=== PATIENT | male | born 1930 | race Caucasian/White ===

== ENCOUNTER 2017-08-23 11:14 | Inpatient (IN) | payer OTHER ==
[2017-08-23 11:28] VITALS: BMI 30.2
--- NOTE | 2017-08-23 11:50 | PDOC ---
History of Present Illness - General History Source: Patient Exam Limitations: No Limitations - History of Present Illness Initial Comments: 08/23/17 12:31 The patient is a 87 year old male, with a significant PMH of CAD, hypertension, hypercholesterolemia, who presents to the emergency department with mid sternal chest pain beginning this morning. The patient states he was in the pharmacy this morning when he had an episode of chest pain described as mid sternal, non radiating and sweating which lasted for a couple of minutes. The patient is a poor historian and unable to provide additional information. The patient also states he has some back pain. The patient denies shortness of breath, headache and dizziness. Denies fever, chills, nausea, vomit, diarrhea and constipation. Denies dysuria, frequency, urgency and hematuria. Allergies: NKA Past surgical history: 3 cardiac stents, thyroidectomy. Social history: No reported Office Supervisor: Dr. Rivas <Dillon Nagy - Last Filed: 08/23/17 15:00> <Sam Hardwick - Last Filed: 08/23/17 19:26> - General Chief Complaint: Chest Pain Stated Complaint: CHEST PAIN Time Seen by Provider: 08/23/17 11:22 Past History <Dillon Nagy - Last Filed: 08/23/17 15:00> - Past Medical History Cardiac Disorders: Yes COPD: No HTN: Yes Hypercholesterolemia: Yes - Surgical History Cardiac Surgery: Yes (STENT X 4) - Suicide/Smoking/Psychosocial Hx Smoking Status: No Smoking History: Never smoked Have you smoked in the past 12 months: No Number of Cigarettes Smoked Daily: 0 Information on smoking cessation initiated: No Hx Alcohol Use: No Drug/Substance Use Hx: No Substance Use Type: None <Sam Hardwick - Last Filed: 08/23/17 19:26> - Past Medical History Allergies/Adverse Reactions: Allergies Allergy/AdvReac Type Severity Reaction Status Date / Time No Known Allergies Allergy Verified 08/23/17 11:23 Home Medications: Ambulatory Orders Alprazolam [Xanax -] 0.25 mg PO TID 12/28/13 Amlodipine Besylate [Norvasc -] 5 mg PO DAILY 12/28/13 Atorvastatin Ca [Lipitor -] 20 mg PO HS 12/28/13 Clopidogrel Bisulfate [Plavix -] 75 mg PO DAILY 12/28/13 Famotidine [Pepcid -] 20 mg PO DAILY 12/28/13 Losartan Potassium 50 mg PO DAILY 12/28/13 Metoprolol Succinate [Toprol XL -] 25 mg PO BID 12/28/13 Zolpidem Tartrate 10 mg PO HS 12/28/13 Fenofibrate [Fenoglide] 160 mg PO DAILY 08/23/17 [place]-3 Acid Ethyl Esters [Lovaza -] 2,000 mg PO BID 08/23/17 Review of Systems - Review of Systems Comments:: 08/23/17 12:32 A complete review of 10 out of 10 review of systems is taken and is negative apart from what is previously mentioned below and in the HPI. <Dillon Nagy - Last Filed: 08/23/17 15:00> *Physical Exam - Vital Signs Last Vital Signs Temp Pulse Resp BP Pulse Ox 97.8 F 62 20 126/67 93 L 08/23/17 11:24 08/23/17 11:34 08/23/17 11:24 08/23/17 11:24 08/23/17 11:24 - Physical Exam Comments: 08/23/17 12:32 Vitals: Triage vital signs reviewed General Appearance: No acute distress, well nourished, well developed Head: Atraumatic Eyes: Pupils equal reactive round, extraocular movement intact Ears: TM's normal bilaterally Nose: Nares patent bilaterally; no nasal congestion Throat: Posterior oropharynx without erythema, mucous membranes moist Neck: Supple; No nuchal rigidity Chest Wall: Nontender Cardiac: Regular rate and rhythm, no murmurs, no rubs, no gallops Lungs: Clear to auscultation bilateral, good air movement bilaterally Abdomen: Soft, nondistended, normal bowel sounds, nontender to palpation Rectal: Exam deferred Extremities: Full range of motion to all extremities, no cyanosis, clubbing, or edema Skin: Warm and dry, no rashes or lesions, no rash, no petechiae Neuro: Cranial Nerves 2-12 grossly intact, Strength intact to all extremities, Sensation intact to all extremities. Psych: Normal mood, normal affect <Dillon Nagy - Last Filed: 08/23/17 15:00> - Vital Signs Last Vital Signs Temp Pulse Resp BP Pulse Ox 97.8 F 62 20 126/67 62 L 08/23/17 11:24 08/23/17 11:24 08/23/17 11:24 08/23/17 11:24 08/23/17 11:34 <aSm Hardwick - Last Filed: 08/23/17 19:26> Heart Score/ECG Review - History History: Moderately suspicious - Electrocardiogram EKG: Normal - Age Age: >/= 65 - Risk Factors Risk Factors Heart Score: Yes Hx Hypercholesterolemia, Yes Hx Hypertension, Yes Positive family hx of cardiac disease Based on the list above the patient has:: >/=3 risk factors or Hx atherosclerotic disease - Troponin Troponin: 1-3x normal limit - Score Heart Score - Total: 6 - ECG Impressions Comment:: 08/23/17 13:52 EKG performed at 1323. Demonstrates sinus rhythm 76 bpm. [place] 1:30 QRS 120 QTC 470. Normal axis and complete right bundle branch block. No ST elevations or T- wave inversions Interpreted by me. <Sam Hardwick - Last Filed: 08/23/17 19:26> ED Treatment Course - LABORATORY CBC & Chemistry Diagram: 08/23/17 12:05 08/23/17 12:05 - ADDITIONAL ORDERS Additional order review: 08/23/17 12:05 RBC 4.41 MCV 92.3 MCHC 34.9 RDW 13.1 MPV 9.1 Neutrophils % 76.3 D Lymphocytes % 12.2 D Monocytes % 9.0 Eosinophils % 2.0 Basophils % 0.5 - RADIOLOGY Radiograph Interpretation: 08/23/17 15:00 EXAM#: TYPE/EXAM: RESULT: [id number] RAD/CHEST X-RAY PORTABLE* AP portable chest: Shortness of breath. Chest pain Since 12/28/2013, again noted is the prominent mediastinum but no sign of an acute process. There are degenerative changes. The angles are sharp. The soft tissues are intact. Correlation recommended. Reported By: Orion Vaughn MD <Dillon Nagy - Last Filed: 08/23/17 15:00> - LABORATORY CBC & Chemistry Diagram: 08/23/17 12:05 08/23/17 12:05 <Sam Hardwick - Last Filed: 08/23/17 19:26> Medical Decision Making - Medical Decision Making 08/23/17 12:33 The patient is a 87 year old male, with a significant PMH of CAD, hypertension, hypercholesterolemia, who presents to the emergency department with mid sternal chest pain beginning this morning. Plan: EKG, Troponin, Labs, Chest x-ray. 08/23/17 13:[address] Cruz. Case discussed. <Dillon Nagy - Last Filed: 08/23/17 15:00> - Medical Decision Making Heart score 6. Troponin 0.2. Case discussed with cardiology and patient's primary care provider. We'll admit to telemetry for further management. Full dose aspirin given. <Sam Hardwick - Last Filed: 08/23/17 19:26> *DC/Admit/Observation/Transfer - Attestations Scribe Attestion: 08/23/17 12:33 Documentation prepared by Dillon Nagy, acting as director medical surgical for Sam Hardwick MD. <Dillon Nagy - Last Filed: 08/23/17 15:00> - Discharge Dispostion Decision to Admit order: Yes <Sam Hardwick - Last Filed: 08/23/17 19:26> Diagnosis at time of Disposition: Chest pain Qualifiers: Chest pain type: unspecified Qualified Code(s): R07.9 - Chest pain, unspecified
[2017-08-23 12:18] LABS: BASO % 0.5 % (0-2.0); HEMATOCRIT 40.7 % (35.4-49); HEMOGLOBIN 14.2 GM/dL (11.7-16.9); LYMPH % 12.2 % (8-40); MCH 32.2 pg (25.7-33.7); MCHC 34.9 g/dl (32.0-35.9); MEAN CELL VOLUME 92.3 fl (80-96); MEAN PLT VOLUME 9.1 fl (7.5-11.1); NEUT % 76.3 % (42.8-82.8); PLATELET COUNT 95 K/MM3 (134-434); RBC 4.41 M/mm3 (4.00-5.60); RDW 13.1 % (11.9-15.9); WHITE BLOOD COUNT 7.2 K/mm3 (4.0-10.0)
[2017-08-23 12:26] LABS: INR 1.12 (0.82-1.09); PROTHROMBIN TIME (PATIENT) 12.7 SEC (9.7-13.0)
[2017-08-23 12:38] LABS: ALBUMIN 3.7 g/dl (3.4-5.0); ANION GAP 6 (8-16); BLOOD UREA NITROGEN 28 mg/dL (7-18); CALCIUM 8.3 mg/dL (8.5-10.1); CHLORIDE 104 mmol/L (98-107); CO2 28 mmol/L (21-32); CREATININE 1.5 mg/dL (0.7-1.3); GLUCOSE,RANDOM 127 mg/dL (74-106); POTASSIUM 4.8 mmol/L (3.5-5.1); SGOT/AST 27 U/L (15-37); SGPT/ALT 24 U/L (12-78); SODIUM 138 mmol/L (136-145)
[2017-08-23 12:40] LABS: ALK PHOS 118 U/L (45-117); BILIRUBIN,TOTAL 1.1 mg/dL (0.2-1.0)
[2017-08-23] MEDS ORDERED: ASPIRIN 325 MG TABLET PO ONE (12:55)
[2017-08-23] MEDS ORDERED: ASPIRIN 325 MG TABLET ONE (12:57)
--- NOTE | 2017-08-23 14:27 | CON.CARD ---
Consult Consult Specialty:: Cardiology Referred by:: Michoacano Dove MD Reason for Consultation:: Chest pain - History of Present Illness Chief Complaint: Chest pain History of Present Illness: 87-year-old male of /[place] descent with known history of coronary artery disease status post multi-vessel percutaneous coronary intervention stenting (ARELI-LAD August 03, 2008, ARELI-LCX and ARELI-RCA August 30, 2008 patent stents on cardiac catheterization coronary angiography January 04, 2014) abnormal pharmacologic (Dipyridamole) myocardial perfusion imaging study for myocardial ischemia May 29, 2012 single vessel obstructive coronary artery disease on coronary angiography January 04, 2014 (distal LAD lesion not appropriate for percutaneous intervention) angina pectoris, diastolic left ventricular dysfunction with class 0 [place] [employer] classification left ventricular failure, mitral valve regurgitation mild plus in severity on echocardiography performed November 17, 2015, aortic valve regurgitation mild plus in severity, tricuspid valve regurgitation mild in severity with calculated RVSP of 36 mmHg on echocardiography performed November 17, 2015, hypertensive cardiovascular disease, hypercholesterolemia/mixed dyslipidemia, abnormal hemoglobin A1C, history of transient diplopia, benign positional vertigo, chronic tinnitus, gastro-esophageal reflux disease, anxiety disorder and chronic insomnia who was last evaluated in the office June 21, 2017. Since the above evaluation, patient presents with non-radiating retrosternal chest discomfort at pharmacy, chronic dyspnea with mild to moderate physical exertion and denies any orthopnea, paroxysmal nocturnal dyspnea or peripheral edema, palpitations, dizziness, lightheadedness or syncope, fatigue or tiredness. Patient admits to lack of ambulation. Patient reports weight gain related to the above-noted lack of ambulation and dietary indiscretion.Patient remains under significant emotional stress related to his 's chronic illness and additional personal/family issues. - History Source History Provided By: Medical Record Limitations to Obtaining History: Poor Historian - Alcohol/Substance Use Hx Alcohol Use: No - Smoking History Smoking history: Never smoked Have you smoked in the past 12 months: No Aproximately how many cigarettes per day: 0 Home Medications - Allergies Allergies/Adverse Reactions: Allergies Allergy/AdvReac Type Severity Reaction Status Date / Time No Known Allergies Allergy Verified 08/23/17 11:23 - Home Medications Home Medications: Ambulatory Orders Alprazolam [Xanax -] 0.25 mg PO TID 12/28/13 Amlodipine Besylate [Norvasc -] 5 mg PO DAILY 12/28/13 Atorvastatin Ca [Lipitor -] 20 mg PO HS 12/28/13 Clopidogrel Bisulfate [Plavix -] 75 mg PO DAILY 12/28/13 Famotidine [Pepcid -] 20 mg PO DAILY 12/28/13 Losartan Potassium 50 mg PO DAILY 12/28/13 Metoprolol Succinate [Toprol XL -] 25 mg PO BID 12/28/13 Zolpidem Tartrate 10 mg PO HS 12/28/13 Fenofibrate [Fenoglide] 160 mg PO DAILY 08/23/17 Review of Systems - Review of Systems Cardiovascular: reports: Chest Pain Vital Signs: Vital Signs Temperature 98.2 F 08/23/17 13:38 Pulse Rate 64 08/23/17 13:38 Respiratory Rate 17 08/23/17 13:38 Blood Pressure 143/78 08/23/17 13:38 O2 Sat by Pulse Oximetry (%) 98 08/23/17 13:38 Constitutional: Yes: No Distress, Calm Neck: Yes: Supple Respiratory: Yes: Regular, CTA Bilaterally Gastrointestinal: Yes: Normal Bowel Sounds, Soft Cardiovascular: Yes: Regular Rate and Rhythm JVD: No Carotid Bruit: No Heart Sounds: Yes: S1, S2 Murmur: Yes: Systolic Murmur, Grade 1 Edema: No - Other Data Labs, Other Data: CBC, BMP 08/23/17 12:05 08/23/17 12:05 INR, PTT INR 1.12 (0.82-1.09) 08/23/17 12:05 Troponin, BNP 08/23/17 12:05 Troponin I 0.20 H D Troponin, BNP 08/23/17 12:05 Troponin I 0.20 H D NSR @ 65 mod criterial LVH Imaging - Results Chest X-ray: Report Reviewed (NAD) Problem List - Problems (1) Coronary artery disease Code(s): I25.10 - ATHSCL HEART DISEASE OF [place] CORONARY ARTERY W/O ANG PCTRS Qualifiers: Coronary Disease-Associated Artery/Lesion type: [place] artery [place] vs. transplanted heart: [place] heart Associated angina: without angina Qualified Code(s): I25.10 - Atherosclerotic heart disease of [place] coronary artery without angina pectoris (2) S/P coronary artery stent placement Code(s): Z95.5 - PRESENCE OF CORONARY ANGIOPLASTY IMPLANT AND GRAFT (3) Hypertensive cardiomyopathy Code(s): I11.9 - HYPERTENSIVE HEART DISEASE WITHOUT HEART FAILURE; I43 - CARDIOMYOPATHY IN DISEASES CLASSIFIED ELSEWHERE Qualifiers: Heart failure presence: without heart failure Qualified Code(s): I11.9 - Hypertensive heart disease without heart failure; I43 - Cardiomyopathy in diseases classified elsewhere; I43 - Cardiomyopathy in diseases classified elsewhere; I43 - Cardiomyopathy in diseases classified elsewhere; I43 - Cardiomyopathy in diseases classified elsewhere (4) Mixed hyperlipidemia Code(s): E78.2 - MIXED HYPERLIPIDEMIA (5) Diastolic dysfunction without heart failure Code(s): I51.89 - OTHER ILL-DEFINED HEART DISEASES (6) Chronic kidney disease (CKD) Code(s): N18.9 - CHRONIC KIDNEY DISEASE, UNSPECIFIED Qualifiers: Chronic kidney disease stage: stage 3 (moderate) Qualified Code(s): N18.3 - Chronic kidney disease, stage 3 (moderate) (7) Chest pain Code(s): R07.9 - CHEST PAIN, UNSPECIFIED Qualifiers: Chest pain type: unspecified Qualified Code(s): R07.9 - Chest pain, unspecified Assessment/Plan Holter monitor performed November 09, 2015 revealed sinus rhythm with first-degree AV block, Mobitz type I AV block, blocked APCs, a minimum HR of 46 BPM and maximum HR of 73 BPM average daily HR of 55 BPM, pauses were noted the longest measuring 2.4 seconds at 15:25:22, rare supraventricular ectopics including one run of NSSVT consistent with ectopic atrial tachycardia, frequent ventricular ectopics including couplets and triplets and nonspecific ST segment abnormality noted during recording non diagnostic of ischemia. Echocardiography performed November 17, 2015 revealed redundant mitral valve leaflets with no evidence of mitral valve prolapse, mitral annular calcification , aortic valve leaflet sclerosis, aortic root sclerosis, normal left ventricular size and function with calculated left ventricular ejection fraction of 64%, mild plus mitral and aortic valve regurgitation, mild tricuspid valve regurgitation with calculated RVSP of 36 mmHg. Echocardiography performed June 01, 2013 revealed normal left ventricular systolic function, mitral annular calcification, aortic valve sclerosis, mild mitral, aortic and tricuspid valve regurgitation with calculated right ventricular systolic pressure of 29 mmHg. Pharmacologic (Dipyridamole) myocardial perfusion imaging study performed May 29, 2012 revealed small distal infero-apical wall defect compatible with mild ischemia, small to moderate size inferior, infero-basal wall defect compatible with diaphragmatic attenuation with normal left ventricular contraction pattern on LV gated analysis with calculated left ventricular ejection fraction of 83%. Left heart cardiac catheterization coronary angiography performed January 04, 2014 revealed patent LAD stent, distal LAD 70% diameter stenosis, patent LCX- OM1 stent and patent RCA stent. 1. Chest pain syndrome with underlying coronary artery disease status post multi-vessel percutaneous coronary intervention stenting abnormal pharmacologic (Dipyridamole) myocardial perfusion imaging study single vessel obstructive coronary artery disease on coronary angiography for medical management angina pectoris, stable. 2. Diastolic left ventricular dysfunction with class 0-I [place] Heart [employer] classification left ventricular failure, compensated/euvolemic. 3. Mitral valve regurgitation mild plus in severity. 4. Aortic valve regurgitation mild plus in severity. 5. Tricuspid valve regurgitation mild in severity with calculated RVSP of 36 mmHg on echocardiography performed November 17, 2015. 6. Hypertensive cardiovascular disease, at goal. 7. Hypercholesterolemia, mixed dyslipidemia, not at goal. 8. Abnormal hemoglobin A1C. 9. History of transient diplopia. 10. History of persistent tinnitus. 11. History of benign positional vertigo. 12. History of gastro-esophageal reflux disease. 13. Chronic kidney disease stage IIIA. 14. History of chronic insomnia. 15. History of anxiety disorder. 1. Patient was advised to continue Toprol XL 25 bid, Norvasc 5 qd, Cozaar 25 qd , Lipitor 20 qd, Plavix 75 qd, Lovaza 2 capsules twice daily considering abnormal lipid profile and in addition emphasized importance of compliance to therapy administration. 2. Ruling out for [place] 3. Patient was strongly counseled dietary compliance including caloric restriction, increase ambulation and weight reduction. 4. Echocardiography for evaluation of left ventricular systolic function and the above-noted valvular pathologies as outpatient 5. Routine follow-up visit with Dr. Clark after discharge 6. Thank you for consultative opportunity
[2017-08-23] MEDS: metoPROLOL SUCCINATE 25 MG TAB.SR.24H (FP) PO SCH ×2 (15:26→21:42)
[2017-08-23] MEDS: ATORVASTATIN CA 20 MG TABLET (FP) PO SCH (21:42)
[2017-08-23] MEDS: RANITIDINE HCL 150 MG TABLET (FP) PO SCH (21:42)
[2017-08-23] MEDS: OMEGA-3 ACID ETHYL ESTERS (FATTY-ACIDS) 1 GM CAPSULE (FP) PO SCH (21:42)
[2017-08-23] MEDS: LOSARTAN POTASSIUM 25 MG TABLET PO SCH (21:42)
[2017-08-23] MEDS ORDERED: ZOLPIDEM TARTRATE 5 MG TABLET PO PRN (22:00)
[2017-08-23] MEDS: ALPRAZolam 0.25 MG TABLET PO SCH (22:06)
[2017-08-24] MEDS: ALPRAZolam 0.25 MG TABLET PO SCH ×3 (06:37→21:09)
--- NOTE | 2017-08-24 08:21 | EKG ---
Test Reason : Blood Pressure : / mmHG Vent. Rate : 065 BPM Atrial Rate : 065 BPM P-R Int : 230 ms QRS Dur : 096 ms QT Int : 370 ms P-R-T Axes : 057 -04 033 degrees QTc Int : 384 ms SINUS RHYTHM WITH SINUS ARRHYTHMIA WITH 1ST DEGREE A-V BLOCK MODERATE VOLTAGE CRITERIA FOR LVH, MAY BE NORMAL VARIANT BORDERLINE ECG WHEN COMPARED WITH ECG OF 28-DEC-2013 03:53, NO SIGNIFICANT CHANGE WAS FOUND Confirmed by BLANCA ALEXANDER MD ([id number]) on 08/24/2017 8:21:00 AM Referred By: Confirmed By:BLANCA ALEXANDER MD
[2017-08-24] MEDS: CLOPIDOGREL BISULFATE 75 MG TABLET (FP) PO SCH (09:40)
[2017-08-24] MEDS: LOSARTAN POTASSIUM 25 MG TABLET PO SCH ×2 (09:40→21:09)
[2017-08-24] MEDS: OMEGA-3 ACID ETHYL ESTERS (FATTY-ACIDS) 1 GM CAPSULE (FP) PO SCH ×2 (09:40→21:09)
[2017-08-24] MEDS: amLODIPine BESYLATE 5 MG TABLET (FP) PO SCH (09:40)
[2017-08-24] MEDS: metoPROLOL SUCCINATE 25 MG TAB.SR.24H (FP) PO SCH ×2 (09:40→21:09)
[2017-08-24] MEDS: RANITIDINE HCL 150 MG TABLET (FP) PO SCH ×2 (09:40→21:09)
[2017-08-24 14:06] LABS: ALBUMIN 3.4 g/dl (3.4-5.0); ANION GAP 5 (8-16); BILIRUBIN,TOTAL 0.8 mg/dL (0.2-1.0); BLOOD UREA NITROGEN 25 mg/dL (7-18); CALCIUM 8.1 mg/dL (8.5-10.1); CHLORIDE 105 mmol/L (98-107); CHOLESTEROL 132 mg/dL (50-200); CO2 28 mmol/L (21-32); CREATININE 1.5 mg/dL (0.7-1.3); GLUCOSE,RANDOM 142 mg/dL (74-106); POTASSIUM 4.5 mmol/L (3.5-5.1); SGOT/AST 29 U/L (15-37); SGPT/ALT 22 U/L (12-78); SODIUM 138 mmol/L (136-145); TOT PROT 6.6 g/dl (6.4-8.2); TRIGLYCERIDES 206 mg/dL (35-160)
[2017-08-24 14:19] LABS: ALK PHOS 114 U/L (45-117); HDL CHOLESTEROL 39 mg/dL (40-60)
--- NOTE | 2017-08-24 15:36 | EKG ---
Test Reason : Blood Pressure : / mmHG Vent. Rate : 058 BPM Atrial Rate : 058 BPM P-R Int : 226 ms QRS Dur : 096 ms QT Int : 426 ms P-R-T Axes : 065 007 018 degrees QTc Int : 418 ms SINUS BRADYCARDIA WITH MARKED SINUS ARRHYTHMIA WITH 1ST DEGREE A-V BLOCK WITH OCCASIONAL PREMATURE VENTRICULAR COMPLEXES MINIMAL VOLTAGE CRITERIA FOR LVH, MAY BE NORMAL VARIANT BORDERLINE ECG WHEN COMPARED WITH ECG OF 23-AUG-2017 11:16, PREMATURE VENTRICULAR COMPLEXES ARE NOW PRESENT Confirmed by BENJAMIN KELLOGG, BLANCA ([id number]) on 08/24/2017 3:36:16 PM Referred By: Arnoldo AUGUSTIN Confirmed By:BLANCA ALEXANDER MD
--- NOTE | 2017-08-24 15:50 | PN ---
Progress Note, Physician History of Present Illness: No further chest pain or dyspnea. - Current Medication List Current Medications: Active Medications Alprazolam (Xanax -) 0.25 mg PO TID [facility] Last Admin: 08/24/17 14:58 Dose: 0.25 mg Amlodipine Besylate (Norvasc -) 5 mg PO DAILY [facility] Last Admin: 08/24/17 09:40 Dose: 5 mg Atorvastatin Calcium (Lipitor -) 20 mg PO HS [facility] Last Admin: 08/23/17 21:42 Dose: 20 mg Clopidogrel Bisulfate (Plavix -) 75 mg PO DAILY [facility] Last Admin: 08/24/17 09:40 Dose: 75 mg Losartan Potassium (Cozaar -) 25 mg PO BID [facility] Last Admin: 08/24/17 09:40 Dose: 25 mg Metoprolol Succinate (Toprol Xl -) 25 mg PO BID [facility] Last Admin: 08/24/17 09:40 Dose: 25 mg [id number] Ethyl Esters (Lovaza -) 2 gm PO BID [facility] Last Admin: 08/24/17 09:40 Dose: 2 gm Ranitidine HCl (Zantac -) 150 mg PO BID [facility] Last Admin: 08/24/17 09:40 Dose: 150 mg Zolpidem Tartrate (Ambien -) 5 mg PO HS PRN PRN Reason: INSOMNIA - Objective Vital Signs: Vital Signs Temperature 97.6 F 08/24/17 14:00 Pulse Rate 65 08/24/17 14:00 Respiratory Rate 18 08/24/17 14:00 Blood Pressure 134/62 08/24/17 14:00 O2 Sat by Pulse Oximetry (%) 96 08/24/17 09:00 Constitutional: Yes: No Distress, Calm, Thin Neck: Yes: Supple Cardiovascular: Yes: Regular Rate and Rhythm Respiratory: Yes: Regular, CTA Bilaterally Gastrointestinal: Yes: Normal Bowel Sounds, Soft Edema: No Labs: CBC, BMP 08/23/17 12:05 08/24/17 13:35 INR, PTT INR 1.12 (0.82-1.09) 08/23/17 12:05 - ....Imaging EKG: Report Reviewed (SB 1st deg AVB PVC) Problem List - Problems (1) Coronary artery disease Code(s): I25.10 - ATHSCL HEART DISEASE OF [place] CORONARY ARTERY W/O ANG PCTRS Qualifiers: Coronary Disease-Associated Artery/Lesion type: [place] artery [place] vs. transplanted heart: [place] heart Associated angina: without angina Qualified Code(s): I25.10 - Atherosclerotic heart disease of [place] coronary artery without angina pectoris (2) S/P coronary artery stent placement Code(s): Z95.5 - PRESENCE OF CORONARY ANGIOPLASTY IMPLANT AND GRAFT (3) Hypertensive cardiomyopathy Code(s): I11.9 - HYPERTENSIVE HEART DISEASE WITHOUT HEART FAILURE; I43 - CARDIOMYOPATHY IN DISEASES CLASSIFIED ELSEWHERE Qualifiers: Heart failure presence: without heart failure Qualified Code(s): I11.9 - Hypertensive heart disease without heart failure; I43 - Cardiomyopathy in diseases classified elsewhere; I43 - Cardiomyopathy in diseases classified elsewhere; I43 - Cardiomyopathy in diseases classified elsewhere; I43 - Cardiomyopathy in diseases classified elsewhere (4) Mixed hyperlipidemia Code(s): E78.2 - MIXED HYPERLIPIDEMIA (5) Diastolic dysfunction without heart failure Code(s): I51.89 - OTHER ILL-DEFINED HEART DISEASES (6) Chronic kidney disease (CKD) Code(s): N18.9 - CHRONIC KIDNEY DISEASE, UNSPECIFIED Qualifiers: Chronic kidney disease stage: stage 3 (moderate) Qualified Code(s): N18.3 - Chronic kidney disease, stage 3 (moderate) (7) Chest pain Code(s): R07.9 - CHEST PAIN, UNSPECIFIED Qualifiers: Chest pain type: unspecified Qualified Code(s): R07.9 - Chest pain, unspecified (8) Demand ischemia Code(s): I24.8 - OTHER FORMS OF ACUTE ISCHEMIC HEART DISEASE Assessment/Plan Holter monitor performed November 09, 2015 revealed sinus rhythm with first-degree AV block, Mobitz type I AV block, blocked APCs, a minimum HR of 46 BPM and maximum HR of 73 BPM average daily HR of 55 BPM, pauses were noted the longest measuring 2.4 seconds at 15:25:22, rare supraventricular ectopics including one run of NSSVT consistent with ectopic atrial tachycardia, frequent ventricular ectopics including couplets and triplets and nonspecific ST segment abnormality noted during recording non diagnostic of ischemia. Echocardiography performed November 17, 2015 revealed redundant mitral valve leaflets with no evidence of mitral valve prolapse, mitral annular calcification , aortic valve leaflet sclerosis, aortic root sclerosis, normal left ventricular size and function with calculated left ventricular ejection fraction of 64%, mild plus mitral and aortic valve regurgitation, mild tricuspid valve regurgitation with calculated RVSP of 36 mmHg. Echocardiography performed June 01, 2013 revealed normal left ventricular systolic function, mitral annular calcification, aortic valve sclerosis, mild mitral, aortic and tricuspid valve regurgitation with calculated right ventricular systolic pressure of 29 mmHg. Pharmacologic (Dipyridamole) myocardial perfusion imaging study performed May 29, 2012 revealed small distal infero-apical wall defect compatible with mild ischemia, small to moderate size inferior, infero-basal wall defect compatible with diaphragmatic attenuation with normal left ventricular contraction pattern on LV gated analysis with calculated left ventricular ejection fraction of 83%. Left heart cardiac catheterization coronary angiography performed January 04, 2014 revealed patent LAD stent, distal LAD 70% diameter stenosis, patent LCX- OM1 stent and patent RCA stent. 1. Chest pain syndrome with underlying coronary artery disease status post multi-vessel percutaneous coronary intervention stenting abnormal pharmacologic (Dipyridamole) myocardial perfusion imaging study single vessel obstructive coronary artery disease on coronary angiography for medical management with demand ischemia 2. Diastolic left ventricular dysfunction with class 0-I [place] [employer] classification left ventricular failure, compensated/euvolemic. 3. Mitral valve regurgitation mild plus in severity. 4. Aortic valve regurgitation mild plus in severity. 5. Tricuspid valve regurgitation mild in severity with calculated RVSP of 36 mmHg on echocardiography performed November 17, 2015. 6. Hypertensive cardiovascular disease, at goal. 7. Hypercholesterolemia, mixed dyslipidemia, not at goal. 8. Abnormal hemoglobin A1C. 9. History of transient diplopia. 10. History of persistent tinnitus. 11. History of benign positional vertigo. 12. History of gastro-esophageal reflux disease. 13. Chronic kidney disease stage IIIA. 14. History of chronic insomnia. 15. History of anxiety disorder. 1. Patient was advised to continue Toprol XL 25 bid, Norvasc 5 qd, Cozaar 25 bid, Lipitor 20 qd, Plavix 75 qd, Lovaza 2 capsules twice daily considering abnormal lipid profile and in addition emphasized importance of compliance to therapy administration. 2. Trend trops to document peak 3. Patient was strongly counseled dietary compliance including caloric restriction, increase ambulation and weight reduction. 4. Echocardiography for evaluation of left ventricular systolic function and the above-noted valvular pathologies as outpatient 5. Routine follow-up visit with Dr. Clark after discharge
--- NOTE | 2017-08-24 20:51 | HP ---
Admitting History and Physical - Primary Care Physician PCP: Michoacano Dove - Admission Chief Complaint: chest pain History of Present Illness: 87 y/o who was at a pharmacy picking up his meds yesterday and noted mid sternal chest pain without any radiation to arms or neck and then began sweating profusely History Source: Patient Limitations to Obtaining History: No Limitations - Past Medical History Cardiovascular: Yes: CAD, HTN, Hyperlipdemia Psych: Yes: Anxiety - Past Surgical History Past Surgical History: Yes: Colonoscopy, Stent Additional Past Surgical History: Parathyroid adenoma excision - Smoking History Smoking history: Never smoked Have you smoked in the past 12 months: No Aproximately how many cigarettes per day: 0 - Alcohol/Substance Use Hx Alcohol Use: No History of Substance Use: reports: None - Social History Usual Living Arrangement: Yes: With Spouse ADL: Independent History of Recent Travel: No Home Medications - Allergies Allergies/Adverse Reactions: Allergies Allergy/AdvReac Type Severity Reaction Status Date / Time No Known Allergies Allergy Verified 08/23/17 11:23 - Home Medications Home Medications: Ambulatory Orders Alprazolam [Xanax] 0.25 mg PO TID 12/28/13 Amlodipine Besylate [Norvasc -] 5 mg PO DAILY 12/28/13 Atorvastatin Ca [Lipitor] 20 mg PO HS 12/28/13 Clopidogrel Bisulfate [Plavix -] 75 mg PO DAILY 12/28/13 Famotidine [Pepcid -] 20 mg PO DAILY 12/28/13 Losartan Potassium 50 mg PO DAILY 12/28/13 Metoprolol Succinate [Toprol XL -] 25 mg PO BID 12/28/13 Zolpidem Tartrate 10 mg PO HS 12/28/13 Liz[place]ores-3 Acid Ethyl Esters [Lovaza -] 2,000 mg PO BID 08/23/17 Amlodipine Besylate [Norvasc -] 5 mg PO DAILY tablet 08/26/17 Atorvastatin Ca [Lipitor] 20 mg PO HS tablet 08/26/17 Clopidogrel Bisulfate [Plavix -] 75 mg PO DAILY tablet 08/26/17 Losartan Potassium [Cozaar -] 25 mg PO BID tablet 08/26/17 Metoprolol Succinate [Toprol XL -] 25 mg PO BID tab.sr.24h 08/26/17 Lizemores-3 Acid Ethyl Esters [Lovaza -] 2 gm PO BID cap 08/26/17 Ranitidine [Zantac -] 150 mg PO BID tablet 08/26/17 Review of Systems - Review of Systems Constitutional: reports: No Symptoms Eyes: reports: No Symptoms HENT: reports: No Symptoms Neck: reports: No Symptoms Cardiovascular: reports: Chest Pain Respiratory: reports: No Symptoms Gastrointestinal: reports: Indigestion Genitourinary: reports: No Symptoms Breasts: reports: No Symptoms Reported Musculoskeletal: reports: No Symptoms Integumentary: reports: No Symptoms Neurological: reports: No Symptoms Endocrine: reports: No Symptoms Hematology/Lymphatic: reports: No Symptoms Psychiatric: reports: Anxiety Physical Examination Vital Signs: Vital Signs Temperature 98.2 F 08/24/17 17:00 Pulse Rate 57 L 08/24/17 17:00 Respiratory Rate 18 08/24/17 17:00 Blood Pressure 123/61 08/24/17 17:00 O2 Sat by Pulse Oximetry (%) 96 08/24/17 09:00 Constitutional: Yes: Well Nourished, No Distress, Calm Eyes: Yes: Conjunctiva Clear, EOM Intact HENT: Yes: WNL Neck: Yes: Supple, Trachea Midline Cardiovascular: Yes: Regular Rate and Rhythm, S1, S2 Respiratory: Yes: Regular, CTA Bilaterally Gastrointestinal: Yes: Normal Bowel Sounds, Soft Renal/: Yes: WNL Breast(s): Yes: WNL Musculoskeletal: Yes: WNL Extremities: Yes: WNL Edema: No Peripheral Pulses WNL: Yes Peripheral Pulses: Left Doralis Pedis: 4+, Right Dorsalis Pedis: 4+ Integumentary: Yes: WNL Neurological: Yes: Alert, Oriented, Cran Nerves II-XII Intact ...Motor Strength: WNL Psychiatric: Yes: Alert, Oriented Labs: CBC, BMP 08/23/17 12:05 08/24/17 13:35 Imaging - Results X-ray: Report Reviewed, Image Reviewed EKG: Report Reviewed, Image Reviewed Problem List - Problems (1) Chest pain Assessment/Plan: At present denies any chest pain even ambulating in the room.Troponin is elevated and will be followed Code(s): R07.9 - CHEST PAIN, UNSPECIFIED Qualifiers: Chest pain type: unspecified Qualified Code(s): R07.9 - Chest pain, unspecified (2) Chronic kidney disease (CKD) Assessment/Plan: Stable renal function at present and will be followed. Code(s): N18.9 - CHRONIC KIDNEY DISEASE, UNSPECIFIED Qualifiers: Chronic kidney disease stage: stage 3 (moderate) Qualified Code(s): N18.3 - Chronic kidney disease, stage 3 (moderate) (3) Coronary artery disease Assessment/Plan: Underwent angioplasty with three stents in the past and had cardiac evaluation with stress test OP and was negative. Code(s): I25.10 - ATHSCL HEART DISEASE OF [id number] CORONARY ARTERY W/O ANG PCTRS Qualifiers: Coronary Disease-Associated Artery/Lesion type: [place] artery [place] vs. transplanted heart: [place] heart Associated angina: without angina Qualified Code(s): I25.10 - Atherosclerotic heart disease of [place] coronary artery without angina pectoris (4) Hypertensive cardiomyopathy Assessment/Plan: BP is well controlled with present meds without any evidence of CHF Code(s): I11.9 - HYPERTENSIVE HEART DISEASE WITHOUT HEART FAILURE; I43 - CARDIOMYOPATHY IN DISEASES CLASSIFIED ELSEWHERE Qualifiers: Heart failure presence: without heart failure Qualified Code(s): I11.9 - Hypertensive heart disease without heart failure; I43 - Cardiomyopathy in diseases classified elsewhere; I43 - Cardiomyopathy in diseases classified elsewhere; I43 - Cardiomyopathy in diseases classified elsewhere; I43 - Cardiomyopathy in diseases classified elsewhere (5) Mixed hyperlipidemia Assessment/Plan: Hyperlipidemia is well controlled with present meds Code(s): E78.2 - MIXED HYPERLIPIDEMIA (6) S/P coronary artery stent placement Code(s): Z95.5 - PRESENCE OF CORONARY ANGIOPLASTY IMPLANT AND GRAFT Assessment/Plan Ischemic HD Hypertensive CVD Coronary angioplasty Mixed hyperlipidemia Chronic kidney disease. Assessment. He remains asymtomatic at present but Troponin is elevated indicative either of infarction or ischemic HD. He is presently being monitored in telemetry and cardiac enzymes being followed and decision to be made about further management.
[2017-08-24] MEDS: ATORVASTATIN CA 20 MG TABLET (FP) PO SCH (21:09)
[2017-08-25] MEDS: ALPRAZolam 0.25 MG TABLET PO SCH ×3 (05:39→21:19)
[2017-08-25] MEDS: RANITIDINE HCL 150 MG TABLET (FP) PO SCH ×2 (09:21→21:19)
[2017-08-25] MEDS: amLODIPine BESYLATE 5 MG TABLET (FP) PO SCH (09:21)
[2017-08-25] MEDS: metoPROLOL SUCCINATE 25 MG TAB.SR.24H (FP) PO SCH ×2 (09:21→21:19)
[2017-08-25] MEDS: OMEGA-3 ACID ETHYL ESTERS (FATTY-ACIDS) 1 GM CAPSULE (FP) PO SCH ×2 (09:22→21:19)
[2017-08-25] MEDS: LOSARTAN POTASSIUM 25 MG TABLET PO SCH ×2 (09:22→21:19)
[2017-08-25] MEDS: CLOPIDOGREL BISULFATE 75 MG TABLET (FP) PO SCH (09:22)
--- NOTE | 2017-08-25 12:53 | PN ---
Progress Note, Physician History of Present Illness: No further chest pain or dyspnea. - Current Medication List Current Medications: Active Medications Alprazolam (Xanax -) 0.25 mg PO TID [facility] Last Admin: 08/25/17 05:39 Dose: 0.25 mg Amlodipine Besylate (Norvasc -) 5 mg PO DAILY [facility] Last Admin: 08/25/17 09:21 Dose: 5 mg Atorvastatin Calcium (Lipitor -) 20 mg PO HS [facility] Last Admin: 08/24/17 21:09 Dose: 20 mg Clopidogrel Bisulfate (Plavix -) 75 mg PO DAILY [facility] Last Admin: 08/25/17 09:22 Dose: 75 mg Losartan Potassium (Cozaar -) 25 mg PO BID [facility] Last Admin: 08/25/17 09:22 Dose: 25 mg Metoprolol Succinate (Toprol Xl -) 25 mg PO BID [facility] Last Admin: 08/25/17 09:21 Dose: 25 mg Inmob-3-Zfia Ethyl Esters (Lovaza -) 2 gm PO BID [facility] Last Admin: 08/25/17 09:22 Dose: 2 gm Ranitidine HCl (Zantac -) 150 mg PO BID [facility] Last Admin: 08/25/17 09:21 Dose: 150 mg Zolpidem Tartrate (Ambien -) 5 mg PO HS PRN PRN Reason: INSOMNIA - Objective Vital Signs: Vital Signs Temperature 98 F 08/25/17 10:00 Pulse Rate 56 L 08/25/17 10:00 Respiratory Rate 18 08/25/17 10:00 Blood Pressure 119/55 08/25/17 10:00 O2 Sat by Pulse Oximetry (%) 98 08/25/17 09:00 Constitutional: Yes: No Distress, Calm, Thin Neck: Yes: Supple Cardiovascular: Yes: Regular Rate and Rhythm Respiratory: Yes: Regular, CTA Bilaterally Gastrointestinal: Yes: Normal Bowel Sounds, Soft Edema: No Labs: CBC, BMP 08/23/17 12:05 08/24/17 13:35 INR, PTT INR 1.12 (0.82-1.09) 08/23/17 12:05 - ....Imaging EKG: Report Reviewed (SB @ 58 1st deg AVB LVH, PVC) Problem List - Problems (1) Coronary artery disease Code(s): I25.10 - ATHSCL HEART DISEASE OF [place] CORONARY ARTERY W/O ANG PCTRS Qualifiers: Coronary Disease-Associated Artery/Lesion type: [place] artery [place] vs. transplanted heart: [place] heart Associated angina: without angina Qualified Code(s): I25.10 - Atherosclerotic heart disease of [place] coronary artery without angina pectoris (2) S/P coronary artery stent placement Code(s): Z95.5 - PRESENCE OF CORONARY ANGIOPLASTY IMPLANT AND GRAFT (3) Hypertensive cardiomyopathy Code(s): I11.9 - HYPERTENSIVE HEART DISEASE WITHOUT HEART FAILURE; I43 - CARDIOMYOPATHY IN DISEASES CLASSIFIED ELSEWHERE Qualifiers: Heart failure presence: without heart failure Qualified Code(s): I11.9 - Hypertensive heart disease without heart failure; I43 - Cardiomyopathy in diseases classified elsewhere; I43 - Cardiomyopathy in diseases classified elsewhere; I43 - Cardiomyopathy in diseases classified elsewhere; I43 - Cardiomyopathy in diseases classified elsewhere (4) Mixed hyperlipidemia Code(s): E78.2 - MIXED HYPERLIPIDEMIA (5) Diastolic dysfunction without heart failure Code(s): I51.89 - OTHER ILL-DEFINED HEART DISEASES (6) Chronic kidney disease (CKD) Code(s): N18.9 - CHRONIC KIDNEY DISEASE, UNSPECIFIED Qualifiers: Chronic kidney disease stage: stage 3 (moderate) Qualified Code(s): N18.3 - Chronic kidney disease, stage 3 (moderate) (7) Chest pain Code(s): R07.9 - CHEST PAIN, UNSPECIFIED Qualifiers: Chest pain type: unspecified Qualified Code(s): R07.9 - Chest pain, unspecified (8) Demand ischemia Code(s): I24.8 - OTHER FORMS OF ACUTE ISCHEMIC HEART DISEASE Assessment/Plan Holter monitor performed November 09, 2015 revealed sinus rhythm with first-degree AV block, Mobitz type I AV block, blocked APCs, a minimum HR of 46 BPM and maximum HR of 73 BPM average daily HR of 55 BPM, pauses were noted the longest measuring 2.4 seconds at 15:25:22, rare supraventricular ectopics including one run of NSSVT consistent with ectopic atrial tachycardia, frequent ventricular ectopics including couplets and triplets and nonspecific ST segment abnormality noted during recording non diagnostic of ischemia. Echocardiography performed November 17, 2015 revealed redundant mitral valve leaflets with no evidence of mitral valve prolapse, mitral annular calcification , aortic valve leaflet sclerosis, aortic root sclerosis, normal left ventricular size and function with calculated left ventricular ejection fraction of 64%, mild plus mitral and aortic valve regurgitation, mild tricuspid valve regurgitation with calculated RVSP of 36 mmHg. Echocardiography performed June 01, 2013 revealed normal left ventricular systolic function, mitral annular calcification, aortic valve sclerosis, mild mitral, aortic and tricuspid valve regurgitation with calculated right ventricular systolic pressure of 29 mmHg. Pharmacologic (Dipyridamole) myocardial perfusion imaging study performed May 29, 2012 revealed small distal infero-apical wall defect compatible with mild ischemia, small to moderate size inferior, infero-basal wall defect compatible with diaphragmatic attenuation with normal left ventricular contraction pattern on LV gated analysis with calculated left ventricular ejection fraction of 83%. Left heart cardiac catheterization coronary angiography performed January 04, 2014 revealed patent LAD stent, distal LAD 70% diameter stenosis, patent LCX- OM1 stent and patent RCA stent. 1. Chest pain syndrome with underlying coronary artery disease status post multi-vessel percutaneous coronary intervention stenting abnormal pharmacologic (Dipyridamole) myocardial perfusion imaging study single vessel obstructive coronary artery disease on coronary angiography for medical management with demand ischemia 2. Diastolic left ventricular dysfunction with class 0-I [place] [employer] classification left ventricular failure, compensated/euvolemic. 3. Mitral valve regurgitation mild plus in severity. 4. Aortic valve regurgitation mild plus in severity. 5. Tricuspid valve regurgitation mild in severity with calculated RVSP of 36 mmHg on echocardiography performed November 17, 2015. 6. Hypertensive cardiovascular disease, at goal. 7. Hypercholesterolemia, mixed dyslipidemia, not at goal. 8. Abnormal hemoglobin A1C. 9. History of transient diplopia. 10. History of persistent tinnitus. 11. History of benign positional vertigo. 12. History of gastro-esophageal reflux disease. 13. Chronic kidney disease stage IIIA. 14. History of chronic insomnia. 15. History of anxiety disorder. 1. Patient to continue Toprol XL 25 bid, Norvasc 5 qd, Cozaar 25 bid, Lipitor 20 qd, Plavix 75 qd, Lovaza 2 capsules twice daily considering abnormal lipid profile and in addition emphasized importance of compliance to therapy administration. 2. Trops have peaked, d/w Dr. Dove, plan for pharmacologic stress to assess severity of CAD 3. Echocardiography for evaluation of left ventricular systolic function and the above-noted valvular pathologies as outpatient 4. Routine follow-up visit with Dr. Clark after discharge
[2017-08-25] MEDS: ATORVASTATIN CA 20 MG TABLET (FP) PO SCH (21:19)
--- NOTE | 2017-08-25 21:34 | PN ---
Progress Note, Physician History of Present Illness: Denies any ches pain, SOB, GREGG,diaphoresis, palpitation or PND. Troponin this AM is 0.4 from 0.7 yesterday. - Current Medication List Current Medications: Active Medications Alprazolam (Xanax -) 0.25 mg PO TID [facility] Last Admin: 08/25/17 21:19 Dose: 0.25 mg Amlodipine Besylate (Norvasc -) 5 mg PO DAILY [facility] Last Admin: 08/25/17 09:21 Dose: 5 mg Atorvastatin Calcium (Lipitor -) 20 mg PO HS [facility] Last Admin: 08/25/17 21:19 Dose: 20 mg Clopidogrel Bisulfate (Plavix -) 75 mg PO DAILY [facility] Last Admin: 08/25/17 09:22 Dose: 75 mg Losartan Potassium (Cozaar -) 25 mg PO BID [facility] Last Admin: 08/25/17 21:19 Dose: 25 mg Metoprolol Succinate (Toprol Xl -) 25 mg PO BID [facility] Last Admin: 08/25/17 21:19 Dose: 25 mg Rkjaj-5-Cgcg Ethyl Esters (Lovaza -) 2 gm PO BID [facility] Last Admin: 08/25/17 21:19 Dose: 2 gm Ranitidine HCl (Zantac -) 150 mg PO BID [facility] Last Admin: 08/25/17 21:19 Dose: 150 mg Zolpidem Tartrate (Ambien -) 5 mg PO HS PRN PRN Reason: INSOMNIA - Objective Vital Signs: Vital Signs Temperature 98.8 F 08/25/17 17:00 Pulse Rate 58 L 08/25/17 17:00 Respiratory Rate 18 08/25/17 20:14 Blood Pressure 115/53 08/25/17 17:00 O2 Sat by Pulse Oximetry (%) 94 L 08/25/17 20:14 Constitutional: Yes: Well Nourished, No Distress, Calm Eyes: Yes: WNL, Conjunctiva Clear, EOM Intact HENT: Yes: WNL Neck: Yes: Supple Cardiovascular: Yes: Regular Rate and Rhythm, S1, S2 Respiratory: Yes: Regular, CTA Bilaterally Gastrointestinal: Yes: Normal Bowel Sounds, Soft Genitourinary: Yes: WNL Musculoskeletal: Yes: WNL Extremities: Yes: WNL Edema: No Peripheral Pulses WNL: Yes Integumentary: Yes: WNL Neurological: Yes: Alert, Oriented, Cran Nerves II-XII Intact ...Motor Strength: WNL Psychiatric: Yes: Alert, Oriented Labs: CBC, BMP 08/23/17 12:05 08/24/17 13:35 INR, PTT INR 1.12 (0.82-1.09) 08/23/17 12:05 Problem List - Problems (1) Chest pain Assessment/Plan: Hasn't c/o chest pain since admission but Troponin level continue elevated suggestive of ischemia or infarction.Further evaluation with stress sestamibi will be done to determine whether to proceed with cardiac cath as he already has three stents. Code(s): R07.9 - CHEST PAIN, UNSPECIFIED Qualifiers: Chest pain type: unspecified Qualified Code(s): R07.9 - Chest pain, unspecified (2) Chronic kidney disease (CKD) Assessment/Plan: Renal disease is stable . Code(s): N18.9 - CHRONIC KIDNEY DISEASE, UNSPECIFIED Qualifiers: Chronic kidney disease stage: stage 3 (moderate) Qualified Code(s): N18.3 - Chronic kidney disease, stage 3 (moderate) (3) Coronary artery disease Assessment/Plan: No angina at present at rest or with ambulation in the hallway Code(s): I25.10 - ATHSCL HEART DISEASE OF [place] CORONARY ARTERY W/O ANG PCTRS Qualifiers: Coronary Disease-Associated Artery/Lesion type: [place] artery [place] vs. transplanted heart: [place] heart Associated angina: without angina Qualified Code(s): I25.10 - Atherosclerotic heart disease of [place] coronary artery without angina pectoris (4) Hypertensive cardiomyopathy Assessment/Plan: Hypertension well controlled with present medication Code(s): I11.9 - HYPERTENSIVE HEART DISEASE WITHOUT HEART FAILURE; I43 - CARDIOMYOPATHY IN DISEASES CLASSIFIED ELSEWHERE Qualifiers: Heart failure presence: without heart failure Qualified Code(s): I11.9 - Hypertensive heart disease without heart failure; I43 - Cardiomyopathy in diseases classified elsewhere; I43 - Cardiomyopathy in diseases classified elsewhere; I43 - Cardiomyopathy in diseases classified elsewhere; I43 - Cardiomyopathy in diseases classified elsewhere (5) Mixed hyperlipidemia Assessment/Plan: Hyperlipidemia well controlled with present medication Code(s): E78.2 - MIXED HYPERLIPIDEMIA (6) S/P coronary artery stent placement Code(s): Z95.5 - PRESENCE OF CORONARY ANGIOPLASTY IMPLANT AND GRAFT Assessment/Plan IMP: Chest pain at admission with elevated Troponin. Coranary Atheroscelorosis s/p Angioplasty with three stents. Hypertension Chronic kidney disease Mixed hyperlipidemia. [facility] and it's planned to proceed with Persantine Stress sestamibi in AM do determine whether to proceed with cardiac cath.
[2017-08-26] MEDS: ALPRAZolam 0.25 MG TABLET PO SCH ×2 (06:24→13:17)
[2017-08-26] MEDS ORDERED: REGADENOSON 0.4 MG/5 ML PRE-FILLED SYRINGE IVPUSH ONE ×2 (10:15→10:46)
--- NOTE | 2017-08-26 12:20 | PN ---
Progress Note, Physician History of Present Illness: No further chest pain or dyspnea, underwent Lexiscan Myoview, awaiting results. - Current Medication List Current Medications: Active Medications Alprazolam (Xanax -) 0.25 mg PO TID [facility] Last Admin: 08/26/17 06:24 Dose: Not Given Amlodipine Besylate (Norvasc -) 5 mg PO DAILY [facility] Last Admin: 08/25/17 09:21 Dose: 5 mg Atorvastatin Calcium (Lipitor -) 20 mg PO HS [facility] Last Admin: 08/25/17 21:19 Dose: 20 mg Clopidogrel Bisulfate (Plavix -) 75 mg PO DAILY [facility] Last Admin: 08/25/17 09:22 Dose: 75 mg Losartan Potassium (Cozaar -) 25 mg PO BID [facility] Last Admin: 08/25/17 21:19 Dose: 25 mg Metoprolol Succinate (Toprol Xl -) 25 mg PO BID [facility] Last Admin: 08/25/17 21:19 Dose: 25 mg Wdihu-4-Ohtn Ethyl Esters (Lovaza -) 2 gm PO BID [facility] Last Admin: 08/25/17 21:19 Dose: 2 gm Ranitidine HCl (Zantac -) 150 mg PO BID [facility] Last Admin: 08/25/17 21:19 Dose: 150 mg Zolpidem Tartrate (Ambien -) 5 mg PO HS PRN PRN Reason: INSOMNIA - Objective Vital Signs: Vital Signs Temperature 98.2 F 08/26/17 05:33 Pulse Rate 56 L 08/26/17 08:30 Respiratory Rate 20 08/26/17 08:30 Blood Pressure 119/63 08/26/17 08:30 O2 Sat by Pulse Oximetry (%) 94 L 08/25/17 20:14 Constitutional: Yes: No Distress, Calm Neck: Yes: Supple Cardiovascular: Yes: Regular Rate and Rhythm Respiratory: Yes: Regular, Diminished Gastrointestinal: Yes: Normal Bowel Sounds, Soft Edema: No Labs: CBC, BMP 08/23/17 12:05 08/24/17 13:35 INR, PTT INR 1.12 (0.82-1.09) 08/23/17 12:05 Problem List - Problems (1) Coronary artery disease Code(s): I25.10 - ATHSCL HEART DISEASE OF [place] CORONARY ARTERY W/O ANG PCTRS Qualifiers: Coronary Disease-Associated Artery/Lesion type: [place] artery [place] vs. transplanted heart: [place] heart Associated angina: without angina Qualified Code(s): I25.10 - Atherosclerotic heart disease of [place] coronary artery without angina pectoris (2) S/P coronary artery stent placement Code(s): Z95.5 - PRESENCE OF CORONARY ANGIOPLASTY IMPLANT AND GRAFT (3) Hypertensive cardiomyopathy Code(s): I11.9 - HYPERTENSIVE HEART DISEASE WITHOUT HEART FAILURE; I43 - CARDIOMYOPATHY IN DISEASES CLASSIFIED ELSEWHERE Qualifiers: Heart failure presence: without heart failure Qualified Code(s): I11.9 - Hypertensive heart disease without heart failure; I43 - Cardiomyopathy in diseases classified elsewhere; I43 - Cardiomyopathy in diseases classified elsewhere; I43 - Cardiomyopathy in diseases classified elsewhere; I43 - Cardiomyopathy in diseases classified elsewhere (4) Mixed hyperlipidemia Code(s): E78.2 - MIXED HYPERLIPIDEMIA (5) Diastolic dysfunction without heart failure Code(s): I51.89 - OTHER ILL-DEFINED HEART DISEASES (6) Chronic kidney disease (CKD) Code(s): N18.9 - CHRONIC KIDNEY DISEASE, UNSPECIFIED Qualifiers: Chronic kidney disease stage: stage 3 (moderate) Qualified Code(s): N18.3 - Chronic kidney disease, stage 3 (moderate) (7) Chest pain Code(s): R07.9 - CHEST PAIN, UNSPECIFIED Qualifiers: Chest pain type: unspecified Qualified Code(s): R07.9 - Chest pain, unspecified (8) Demand ischemia Code(s): I24.8 - OTHER FORMS OF ACUTE ISCHEMIC HEART DISEASE Assessment/Plan Holter monitor performed November 09, 2015 revealed sinus rhythm with first-degree AV block, Mobitz type I AV block, blocked APCs, a minimum HR of 46 BPM and maximum HR of 73 BPM average daily HR of 55 BPM, pauses were noted the longest measuring 2.4 seconds at 15:25:22, rare supraventricular ectopics including one run of NSSVT consistent with ectopic atrial tachycardia, frequent ventricular ectopics including couplets and triplets and nonspecific ST segment abnormality noted during recording non diagnostic of ischemia. Echocardiography performed November 17, 2015 revealed redundant mitral valve leaflets with no evidence of mitral valve prolapse, mitral annular calcification , aortic valve leaflet sclerosis, aortic root sclerosis, normal left ventricular size and function with calculated left ventricular ejection fraction of 64%, mild plus mitral and aortic valve regurgitation, mild tricuspid valve regurgitation with calculated RVSP of 36 mmHg. Echocardiography performed June 01, 2013 revealed normal left ventricular systolic function, mitral annular calcification, aortic valve sclerosis, mild mitral, aortic and tricuspid valve regurgitation with calculated right ventricular systolic pressure of 29 mmHg. Pharmacologic (Dipyridamole) myocardial perfusion imaging study performed May 29, 2012 revealed small distal infero-apical wall defect compatible with mild ischemia, small to moderate size inferior, infero-basal wall defect compatible with diaphragmatic attenuation with normal left ventricular contraction pattern on LV gated analysis with calculated left ventricular ejection fraction of 83%. Left heart cardiac catheterization coronary angiography performed January 04, 2014 revealed patent LAD stent, distal LAD 70% diameter stenosis, patent LCX- OM1 stent and patent RCA stent. 1. Chest pain syndrome with underlying coronary artery disease status post multi-vessel percutaneous coronary intervention stenting abnormal pharmacologic (Dipyridamole) myocardial perfusion imaging study single vessel obstructive coronary artery disease on coronary angiography for medical management with demand ischemia 2. Diastolic left ventricular dysfunction with class 0-I [place] [employer] classification left ventricular failure, compensated/euvolemic. 3. Mitral valve regurgitation mild plus in severity. 4. Aortic valve regurgitation mild plus in severity. 5. Tricuspid valve regurgitation mild in severity with calculated RVSP of 36 mmHg on echocardiography performed November 17, 2015. 6. Hypertensive cardiovascular disease, at goal. 7. Hypercholesterolemia, mixed dyslipidemia, not at goal. 8. Abnormal hemoglobin A1C. 9. History of transient diplopia. 10. History of persistent tinnitus. 11. History of benign positional vertigo. 12. History of gastro-esophageal reflux disease. 13. Chronic kidney disease stage IIIA. 14. History of chronic insomnia. 15. History of anxiety disorder. 1. Patient to continue Toprol XL 25 bid, Norvasc 5 qd, Cozaar 25 bid, Lipitor 20 qd, Plavix 75 qd, Lovaza 2 capsules twice daily considering abnormal lipid profile and in addition emphasized importance of compliance to therapy administration. 2. Trops have peaked, d/w Dr. Dove, f/u pharmacologic stress to assess severity of CAD 3. Echocardiography for evaluation of left ventricular systolic function and the above-noted valvular pathologies as outpatient 4. Routine follow-up visit with Dr. Clark after discharge
[2017-08-26] MEDS: amLODIPine BESYLATE 5 MG TABLET (FP) PO SCH (13:17)
[2017-08-26] MEDS: OMEGA-3 ACID ETHYL ESTERS (FATTY-ACIDS) 1 GM CAPSULE (FP) PO SCH (13:17)
[2017-08-26] MEDS: CLOPIDOGREL BISULFATE 75 MG TABLET (FP) PO SCH (13:17)
[2017-08-26] MEDS: LOSARTAN POTASSIUM 25 MG TABLET PO SCH (13:17)
[2017-08-26] MEDS: metoPROLOL SUCCINATE 25 MG TAB.SR.24H (FP) PO SCH (13:18)
[2017-08-26] MEDS: RANITIDINE HCL 150 MG TABLET (FP) PO SCH (13:18)
[2017-08-26 18:40] VITALS: BP 109/56; PULSE 58; TEMP 97.7
--- NOTE | 2017-08-27 20:34 | DS ---
Physical Examination Vital Signs: Vital Signs Temperature 97.7 F 08/26/17 18:00 Pulse Rate 58 L 08/26/17 18:00 Respiratory Rate 19 08/26/17 18:00 Blood Pressure 109/56 08/26/17 18:00 O2 Sat by Pulse Oximetry (%) 94 L 08/25/17 20:14 Constitutional: Yes: Well Nourished, No Distress, Calm Eyes: Yes: Conjunctiva Clear, EOM Intact HENT: Yes: WNL Neck: Yes: Supple Cardiovascular: Yes: Regular Rate and Rhythm, S1, S2 Respiratory: Yes: Regular, CTA Bilaterally Gastrointestinal: Yes: Normal Bowel Sounds, Soft Renal/: Yes: WNL Breast(s): Yes: WNL Musculoskeletal: Yes: WNL Extremities: Yes: WNL Edema: No Peripheral Pulses WNL: Yes Integumentary: Yes: WNL Neurological: Yes: Alert, Oriented ...Motor Strength: WNL Psychiatric: Yes: Alert, Oriented Labs: CBC, BMP 08/23/17 12:05 08/24/17 13:35 Discharge Summary Reason For Visit: CHEST PAIN Procedures: Principal: [facility] Hospital Course: 87 y/o with known CAD with three stents was brought to ED with CP. In the ED EKG ,VS and cardiac enzymes were normal He was admitted to Telemetry and monitored. His Troponin was elevated for two days without any CP and it was decided to proceed with [facility] which did not show any defects and it felt safe to discharge patient after consulting data entry coordinator discussion. Condition: Improved - Instructions Referrals: Michoacano Dove MD [Primary Care Provider] - Disposition: HOME - Home Medications Comprehensive Discharge Medication List: Ambulatory Orders Alprazolam [Xanax] 0.25 mg PO TID 12/28/13 Amlodipine Besylate [Norvasc -] 5 mg PO DAILY 12/28/13 Atorvastatin Ca [Lipitor] 20 mg PO HS 12/28/13 Clopidogrel Bisulfate [Plavix -] 75 mg PO DAILY 12/28/13 Famotidine [Pepcid -] 20 mg PO DAILY 12/28/13 Losartan Potassium 50 mg PO DAILY 12/28/13 Metoprolol Succinate [Toprol XL -] 25 mg PO BID 12/28/13 Zolpidem Tartrate 10 mg PO HS 12/28/13 Moro-3 Acid Ethyl Esters [Lovaza -] 2,000 mg PO BID 08/23/17 Amlodipine Besylate [Norvasc -] 5 mg PO DAILY tablet 08/26/17 Atorvastatin Ca [Lipitor] 20 mg PO HS tablet 08/26/17 Clopidogrel Bisulfate [Plavix -] 75 mg PO DAILY tablet 08/26/17 Losartan Potassium [Cozaar -] 25 mg PO BID tablet 08/26/17 Metoprolol Succinate [Toprol XL -] 25 mg PO BID tab.sr.24h 08/26/17 Moro-3 Acid Ethyl Esters [Lovaza -] 2 gm PO BID cap 08/26/17 Ranitidine [Zantac -] 150 mg PO BID tablet 08/26/17
== END 2017-08-26 19:28 | disposition home or self-care (01) | DRG 303 ==
LOC: JER 11:14 → JERBED 13:09 → J4W 14:55
PROVIDERS: ADMIT Internal Medicine Hematology & Oncology; ATTEND Internal Medicine Hematology & Oncology
DX: I25.119 Atherosclerotic heart disease of native coronary artery with unspecified angina pectoris (principal); I13.0 Hypertensive heart and chronic kidney disease with heart failure and stage 1 through stage 4 chronic kidney disease, or unspecified chronic kidney disease; I50.30 Unspecified diastolic (congestive) heart failure; N18.3 Chronic kidney disease, stage 3 (moderate); E78.2 Mixed hyperlipidemia; Z98.61 Coronary angioplasty status; R07.89 Other chest pain
CPT/HCPCS: 36415; 71045-TC-FY; 78452-TC; 80048; 80053; 80061; 82550; 82553; 83036; 83721; 84443; 84484; 85025; 85610; 85730; 93005; 93010; 93017; 99284-25; A9502; J2785